=== PATIENT | female | born 1965 | race Two or more races ===

== ENCOUNTER 2023-10-09 13:49 | Outpatient (RCR) | payer MEDICAID, SELFPAY | END 2023-11-01 23:59 | disposition home or self-care (01) | LOC: CPTX 13:49 | PROVIDERS: PCP Orthopaedic Surgery Adult Reconstructive Orthopaedic Surgery; Referring Provider Orthopaedic Surgery Adult Reconstructive Orthopaedic Surgery; Visit Provider Orthopaedic Surgery Adult Reconstructive Orthopaedic Surgery | DX: Z53.8 Procedure and treatment not carried out for other reasons (principal) ==

== ENCOUNTER 2024-04-24 14:20 | Outpatient (AMB) | payer MEDICAID, SELFPAY ==
[2024-04-24 14:39] VITALS: BP 125/81; PULSE 60; RESP 18; TEMP 36.6; O2SAT 97; BMI 35.2
--- NOTE | 2024-04-24 14:39 | PD.ORTHCLVIS ---
Vital signs 04/24/24 14:39 Height 1.52 m Height Method Stated Weight 81.42 kg Weight Measurement Method Standing Scale BMI 35.2 BP 125/81 Blood Pressure Source Automatic Cuff Blood Pressure Location Right Upper Arm Position Sitting Respiration 18 Pulse 60 Pulse Source Monitor Temp 97.8 F Temp Source Temporal Artery Scan Pulse Oximetry (%) 97 Oxygen Delivery Method Room Air Med/Allergies Allergies & Medications Allergies No Known Drug Allergies Allergy (Verified 04/24/24 14:40) Medication Reconciliation diclofenac sodium 1 % topical gel (Arthritis Pain (diclofenac)) 2 g topical QID 05/07/23 [History Confirmed 04/24/24] hydroxyzine HCl 25 mg tablet 25 mg PO HS 10/18/23 [History Confirmed 04/24/24] ibuprofen 800 mg tablet 800 mg PO Q8H PRN Pain 10/18/23 [History Confirmed 04/24/24] aspirin 81 mg tablet,delayed release 81 mg PO BID #60 tabs 10/21/23 [Rx Confirmed 04/24/24] doxycycline hyclate 100 mg tablet 100 mg PO BID #14 tabs 10/21/23 [Rx Confirmed 04/24/24] sennosides 8.6 mg-docusate sodium 50 mg tablet (Senna-S) 1 tab-cap PO QDAY #30 tabs 10/21/23 [Rx Confirmed 04/24/24] oxycodone 5 mg tablet 5 mg PO Q6H PRN pain #28 tabs 10/31/23 [Rx Confirmed 04/24/24] oxycodone 5 mg tablet 5 mg PO Q6H PRN pain #28 tabs 11/05/23 [Rx Confirmed 04/24/24] pregabalin 75 mg capsule 75 mg PO BID #45 caps 11/05/23 [Rx Confirmed 04/24/24] acetaminophen 500 mg tablet (Acetaminophen Extra Strength) 1,000 mg (2 x 500 mg) PO Q6H PRN pain #90 tabs 12/03/23 [Rx Confirmed 04/24/24] meloxicam 7.5 mg tablet 7.5 mg PO QDAY #30 tabs 01/11/24 [Rx Confirmed 04/24/24] Subjective Visit Visit for: follow up visit, post op #3 and knee Immunization / Flu Flu Vaccine in the Last 12 Months: No Flu Vaccine Exclusion Criteria: No Exclusion Criteria History of Present Illness Chief complaint: POST OP Date of 1st surgery (if applicable): OCTOBER 2023 Crystal is a pleasant 57-year-old female who is status post right total knee replacement. She is doing well. She has minimal pain in her right knee. Personal History Occupation: DISABLED Red flag PMH: none Pain Pain level (0-10): 1 Pain duration: COMES AND GOES Pain location: anterior and posterior Pain quality: shocking, electric and tingling Pain timing: increases with activity Associated signs & symptoms: stiffness Ambulatory data Ambulatory device: none Treatments Improvement with previous injections: No Improvement with PT: No Improvement with NSAIDS: n/a Review of Systems Review of Systems: All systems negative unless otherwise noted in HPI. Exam Exam Patient is in no acute distress and is cooperative with the examination today. Patient has a normal mood and affect. Breathing is nonlabored. In no respiratory distress. Bilateral extremities were evaluated and demonstrates sensation intact to light touch. Palpable pedal pulses are present. No significant edema is present. Left knee incision is clean dry and intact. Range of motion 0-1 10. Right knee range of motion is 0 to 115 degrees. Knee is extremely tender to palpation medially. There is varus alignment. Knee feels stable varus valgus stress as well as AP translation. Knee incision is clean dry and intact X-rays demonstrate cementless total knee replacements in good alignment and position Assessment and Plan Problem List (1) Status post total left knee replacement: Status: Acute (2) Status post total right knee replacement: Status: Acute Plan: 57yo Female status post right total knee replacement. She is doing well. We will see her in approximately 6 months with new xrays Office Procedures GNS Level of Care Nursing/Assessment Patient Status: Established Patient Nursing Assessment/Reassesment: Medication Reconciliation, Update PMH in EMR and Vital Signs Coordination of Care: Complex Care and Chronic Disease 1-5, Education Complex Pt/Fam, Consent,records obtained, informed consent, Results/Orders obtained and Staff clarify orders Special Needs: Language special needs Established Patient Charge Established Patient Point Assignment: 95 Established Patient Point Charge: EP Level 3 (80-115) Past Medical History Past Medical History Have you ever been diagnosed with any of the following: Neurological Problems Seizures: No Cardiology Problems Congestive Heart Failure: No Respiratory Problems Chronic Obstructive Pulmonary Disease (COPD): No Smoking: No Smoking Exposure: No Stomache/Intestinal Problems Hepatitis: No Obesity: Yes Genital/Urinary Problems Renal Disease: No Reproductive Problems Previous Pregnancies: Yes Musculoskeletal Problems Arthritis: Yes Endocrine Problems Diabetes Mellitus Type 1: No Diabetes Mellitus Type 2: No Psychologic Problems Anxiety: Yes Other Problems Hospitalization: No Shingles: Yes Blood Transfusions: Yes Blood Transfusion Reaction: Yes Anesthesia Reactions: No Chicken Pox: Yes Measles: Yes Mumps: Yes Cancer: No
== END 2024-04-24 14:55 | disposition home or self-care (01) ==
LOC: HODSRG 14:20
PROVIDERS: PCP Family Medicine; Referring Provider Family Medicine; Supervising Provider Orthopaedic Surgery Adult Reconstructive Orthopaedic Surgery; Visit Provider Orthopaedic Surgery Adult Reconstructive Orthopaedic Surgery
DX: Z96.651 Presence of right artificial knee joint (principal)
CPT/HCPCS: 99213; G0463

== ENCOUNTER 2024-11-12 08:06 | Outpatient (AMB) | payer MEDICAID, SELFPAY ==
[2024-11-12 08:21] VITALS: BP 106/67; PULSE 53; RESP 16; TEMP 36.2; O2SAT 97; BMI 37.0
--- NOTE | 2024-11-12 08:21 | ORTHONT_ITS ---
Vital signs 11/12/24 08:21 Height 1.52 m Height Method Stated Weight 85.729 kg Weight Measurement Method Standing Scale BMI 37.0 BP 106/67 Blood Pressure Source Automatic Cuff Blood Pressure Location Right Upper Arm Position Sitting Respiration 16 Pulse 53 L Pulse Source Monitor Temp 97.1 F Temp Source Temporal Artery Scan Pulse Oximetry (%) 97 Oxygen Delivery Method Room Air Med/Allergies Allergies & Medications Allergies No Known Drug Allergies Allergy (Verified 11/12/24 08:22) Medication Reconciliation diclofenac sodium 1 % topical gel (Arthritis Pain (diclofenac)) 2 g topical QID 05/07/23 [History Confirmed 11/12/24] hydroxyzine HCl 25 mg tablet 25 mg PO HS 10/18/23 [History Confirmed 11/12/24] ibuprofen 800 mg tablet 800 mg PO Q8H PRN Pain 10/18/23 [History Confirmed 11/01 07/28] aspirin 81 mg tablet,delayed release 81 mg PO BID #60 tabs 10/21/23 [Rx Confirmed 11/12/24] doxycycline hyclate 100 mg tablet 100 mg PO BID #14 tabs 10/21/23 [Rx Confirmed 11/12/24] sennosides 8.6 mg-docusate sodium 50 mg tablet (Senna-S) 1 tab-cap PO QDAY #30 tabs 10/21/23 [Rx Confirmed 11/12/24] oxycodone 5 mg tablet 5 mg PO Q6H PRN pain #28 tabs 10/31/23 [Rx Confirmed 11/12/24] oxycodone 5 mg tablet 5 mg PO Q6H PRN pain #28 tabs 11/05/23 [Rx Confirmed 11/12/24] pregabalin 75 mg capsule 75 mg PO BID #45 caps 11/05/23 [Rx Confirmed 11/12/24] acetaminophen 500 mg tablet (Acetaminophen Extra Strength) 1,000 mg (2 x 500 mg) PO Q6H PRN pain #90 tabs 12/03/23 [Rx Confirmed 11/12/24] meloxicam 7.5 mg tablet 7.5 mg PO QDAY #30 tabs 01/11/24 [Rx Confirmed 11/12/24] Exam Exam Patient is in no acute distress and is cooperative with the examination today. Patient has a normal mood and affect. Breathing is nonlabored. In no respiratory distress. Bilateral extremities were evaluated and demonstrates sensation intact to light touch. Palpable pedal pulses are present. No significant edema is present. Left knee incision is clean dry and intact. Range of motion 0-1 10. Right knee range of motion is 0 to 115 degrees. Knee is extremely tender to palpation medially. There is varus alignment. Knee feels stable varus valgus stress as well as AP translation. Knee incision is clean dry and intact X-rays demonstrate cementless total knee replacements in good alignment and position Assessment and Plan Problem List (1) Status post total left knee replacement: Status: Acute (2) Status post total right knee replacement: Status: Acute Plan: 57yo Female status post right total knee replacement. She is doing well. We will see her in approximately 2 years Office Procedures GNS Level of Care Nursing/Assessment Patient Status: Established Patient Nursing Assessment/Reassesment: Medication Reconciliation, Update PMH in EMR and Vital Signs Coordination of Care: Complex Care and Chronic Disease 1-5, Education Complex Pt/Fam, Consent,records obtained, informed consent, Results/Orders obtained and Staff clarify orders Special Needs: Language special needs (BOLIVIAN ) Established Patient Charge Established Patient Point Assignment: 95 Established Patient Point Charge: EP Level 3 (80-115) MA Intake Visit Data Collection New Patient or Established: Established Patient (seen at [facility] within 3 years) Reason for Visit:: 6 MNTH FU RT TKA Seen by Clinical Staff ONLY (RN/MA): No Field Care Advocate Required: Yes PCP or OBGYN visit in last 3 months: Yes Hx Now: No Do You Feel Safe at Home: Yes Authorities Contacted: N/A Questionairres Past Medical History Past Medical History Have you ever been diagnosed with any of the following: Neurological Problems Seizures: No Cardiology Problems Congestive Heart Failure: No Respiratory Problems Chronic Obstructive Pulmonary Disease (COPD): No Smoking: No Smoking Exposure: No Stomache/Intestinal Problems Hepatitis: No Obesity: Yes Genital/Urinary Problems Renal Disease: No Reproductive Problems Previous Pregnancies: Yes Musculoskeletal Problems Arthritis: Yes Endocrine Problems Diabetes Mellitus Type 1: No Diabetes Mellitus Type 2: No Psychologic Problems Anxiety: Yes Other Problems Hospitalization: No Shingles: Yes Blood Transfusions: Yes Blood Transfusion Reaction: Yes Anesthesia Reactions: No Chicken Pox: Yes Measles: Yes Mumps: Yes Cancer: No Subjective Visit Visit for: follow up visit and knee (RIGHT KNEE TKA ) Immunization / Flu Flu Vaccine in the Last 12 Months: No Flu Vaccine Exclusion Criteria: Refused by Patient History of Present Illness Chief complaint: bl knee pain Crystal is a pleasant 57-year-old female who is status post right total knee replacement. She is doing well. She has minimal pain in both her knees Personal History Red flag PMH: none Pain Pain level (0-10): 0 Pain location: anterior Pain quality: aching and other (specify) (SWELLING ) Pain timing: increases with activity (WHILE AT WORK ) and other (specify) (WHILE WORK ) Associated signs & symptoms: none Ambulatory data Ambulatory device: none Treatments Number of previous injections: 0 Number of Physical Therapy sessions: 0 Improvement with NSAIDS: n/a Review of Systems Review of Systems: All systems negative unless otherwise noted in HPI.
== END 2024-11-12 08:35 | disposition home or self-care (01) ==
LOC: HODSRG 08:06
PROVIDERS: PCP Family Medicine; Referring Provider Family Medicine; Supervising Provider Orthopaedic Surgery Adult Reconstructive Orthopaedic Surgery; Visit Provider Orthopaedic Surgery Adult Reconstructive Orthopaedic Surgery
DX: Z96.651 Presence of right artificial knee joint (principal); M25.562 Pain in left knee; M25.561 Pain in right knee
CPT/HCPCS: 99213; G0463